=== PATIENT | male | born 1970 | race Caucasian/White ===

== ENCOUNTER 2022-05-04 21:24 | Emergency (ER) | payer MEDICAID ==
[~2022-05-04] VITALS: Ht 185.4 cm; Wt 88.5 kg
[2022-05-04 21:25] VITALS: BP 151/76
[2022-05-04] MEDS ORDERED: NABU-141 PO (22:26)
[2022-05-04] MEDS ORDERED: KETOROLAC TROMETHAMINE INJ 60 MG/2 ML VIAL IM ONE (22:30)
--- NOTE | 2022-05-04 22:30 | NUR ---
PT REFUSED PAIN MEDICATION. EMT AT BED SIDE TO APPLY SPLINT
== END 2022-05-04 22:53 | disposition home or self-care (01) ==
LOC: ER 21:24
DX: S92.424A Nondisplaced fracture of distal phalanx of right great toe, initial encounter for closed fracture (principal); W04.XXXA Fall while being carried or supported by other persons, initial encounter; Y93.89 Activity, other specified; Y92.89 Other specified places as the place of occurrence of the external cause; Y99.8 Other external cause status
CPT/HCPCS: 73630-TC